=== PATIENT | female | born 1995 | race Caucasian/White ===

== ENCOUNTER 2017-04-04 15:23 | Emergency (ER) | payer OTHER ==
[~2017-04-04] VITALS: Ht 152.4 cm; Wt 49.9 kg
[~2017-04-04 15:23] MED LIST: CIPROFLOXACIN500 M2 ORAL; IBUPROFEN600 MG ORAL; KEFLEX500 MG ORAL; NKM; OMEPRAZOLE40 M1 ORAL; PHENAZOPYRIDIN200 MG ORAL
[2017-04-04 16:00] VITALS: BP 106/70
[2017-04-04 16:11] LABS: APPEARANCE,URINE CLEAR; KETONES,URINE NEGATIVE (NEGATIVE); LEUKOCYTE ESTERASE ,URINE 3+ (NEGATIVE); NITRITE,URINE POSITIVE (NEGATIVE); PH,URINE 6.5 (4.5-8.0); PROTEIN,URINE NEGATIVE (NEGATIVE); UROBILINOGEN,URINE 4 MG/DL (0.0-1.0)
[2017-04-04] MEDS ORDERED: Tylenol #3 tab (300mg/30mg) ORAL ONE (16:15)
[2017-04-04 16:20] LABS: ICTOTEST NEGATIVE
[2017-04-04 16:22] LABS: SQUAMOUS EPITHELIAL CELL,UR OCCASIONAL /LPF (NONE/OCC); WBC,URINE 15-20 /HPF (0 - 2)
[2017-04-04 16:23] LABS: BACTERIA,URINE FEW /HPF
[2017-04-04] MEDS ORDERED: ACETAMINOPHEN-1 EAC1 ORAL (17:19)
[2017-04-04] MEDS ORDERED: ZOFRAN ODT4 MG ORAL (17:19)
[2017-04-04] MEDS ORDERED: KEFLEX500 MG ORAL (17:19)
[2017-04-04] MEDS ORDERED: PHENAZOPYRIDIN100 MG ORAL (17:19)
[2017-04-04] MEDS ORDERED: Cephalexin 500mg cap ORAL ONE (17:45)
[2017-04-04 18:27] VITALS: BP 106/70
--- NOTE | 2017-04-05 22:18 | Emergency Room Report ---
History of Present Illness General Chief Complaint: Female Urogenital Problems Source: Patient Present Illness HPI 21-year-old female presents ED complaining of dysuria x2 days. Notes intense pain when urinating. 10 of 10. Burning. Nonradiating. Denies fevers or chills. Denies flank pain. Denies nausea or vomiting. Denies any vaginal bleeding or discharge. Patient admits to being sexually active. No other aggravating or relieving factors. Denies any other associated symptoms Allergies: Coded Allergies: BROMPHENIRAMINE (Unverified Allergy, Unknown, 07/27/14) DEXTROMETHORPHAN (Unverified Allergy, Unknown, 07/27/14) PHENYLEPHRINE (Unverified Allergy, Unknown, 07/27/14) PSEUDOEPHEDRINE (Unverified Allergy, Unknown, 12/30/15) Patient History Past Medical History: none Past Surgical History: none Pertinent Family History: none Social History: Denies: alcohol use, drug use, smoking Now: No Immunizations: UTD Reviewed Nursing Documentation: PMH: Agreed, PSxH: Agreed Nursing Documentation-PMH Past Medical History: No Stated History Review of Systems All Other Systems: negative except mentioned in HPI Physical Exam Vital Signs Date Time Temp Pulse Resp B/P Pulse Ox O2 Delivery O2 Flow Rate FiO2 04/04/17 15:30 97.9 100 20 106/70 100 Room Air Sp02 EP Interpretation: reviewed, normal General Appearance: no apparent distress, alert, GCS 15, non-toxic Head: normocephalic, atraumatic Eyes: bilateral eye PERRL, bilateral eye normal inspection ENT: hearing grossly normal, normal pharynx, no angioedema, normal voice Neck: full range of motion, supple/symm/no masses Respiratory: chest non-tender, lungs clear, normal breath sounds, speaking full sentences Cardiovascular #1: regular rate, rhythm, no edema Cardiovascular #2: 2+ carotid (R), 2+ carotid (L), 2+ radial (R), 2+ radial (L) , 2+ dorsalis pedis (R), 2+ dorsalis pedis (L) Gastrointestinal: normal bowel sounds, soft, non-distended, no guarding, no rebound, tenderness - suprapubic Rectal: deferred Genitourinary: normal inspection, no CVA tenderness Musculoskeletal: back normal, gait/station normal, normal range of motion, non- tender Neurologic: alert, oriented x3, responsive, motor strength/tone normal, sensory intact, speech normal Psychiatric: judgement/insight normal, memory normal, mood/affect normal, no suicidal/homicidal ideation Reflexes: 3+ bicep (R), 3+ bicep (L), 3+ tricep (R), 3+ tricep (L), 3+ knee (R) , 3+ knee (L) Skin: normal color, no rash, warm/dry, well hydrated Lymphatic: no adenopathy Medical Decision Making Diagnostic Impression: Primary Impression: UTI (lower urinary tract infection) Additional Impression: Dysuria ER Course Hospital Course 21-year-old female presents to ED complaining of dysuria with suprapubic pain. Differential diagnoses include: UTI, cystitis, pyelonephritis Clinical course Patient placed on stretcher. After initial history and physical I ordered UA, urine , tylenol #3. UA + bacteria. Diagnosis - UTI, dysuria Stable and discharged home with prescriptions for Rx Keflex, Pyridium, tylenol # 3, zofran. Instructed to followup with PMD. Return to ED if symptoms recur or worsen Labs Test 04/04/17 15:40 Urine Color [place] Urine Appearance Clear Urine pH 6.5 (4.5-8.0) Urine Specific [place] 1.005 (1.005-1.035) Urine Protein Negative (NEGATIVE) Urine Glucose (UA) Negative (NEGATIVE) Urine Ketones Negative (NEGATIVE) Urine Occult Blood 5+ (NEGATIVE) Urine Nitrite Positive (NEGATIVE) Urine Bilirubin 2+ (NEGATIVE) Urine Ictotest Negative Urine Urobilinogen 4 MG/DL (0.0-1.0) Urine Leukocyte Esterase 3+ (NEGATIVE) Urine RBC 2-4 /HPF (0 - 2) Urine WBC 15-20 /HPF (0 - 2) Urine Squamous Epithelial Cells Occasional /LPF Urine Bacteria Few /HPF (NONE) Urine HCG, Qualitative Negative Last Vital Signs Date Time Temp Pulse Resp B/P Pulse Ox O2 Delivery O2 Flow Rate FiO2 04/04/17 18:27 97.9 89 20 106/70 100 Room Air Status: improved Disposition: HOME, SELF-CARE Condition: Stable Scripts Ondansetron Odt* (ZOFRAN ODT*) 4 Mg Tab.rapdis 4 MG ORAL Q6H Y for Nausea & Vomiting, #30 TAB 0 Refills Prov: AXEL GOYAL M.D. 04/04/17 Phenazopyridine Hcl* (PYRIDIUM*) 100 Mg Tablet 100 MG ORAL THREE TIMES A DAY for 3 Days, TAB Prov: AXEL GOYAL M.D. 04/04/17 Acetaminophen With Codeine (T#3) (TYLENOL #3 TAB*) Y Tab 1 TAB ORAL Q8H Y for For Pain, #10 TAB Prov: AXEL GOYAL M.D. 04/04/17 Cephalexin* (KEFLEX*) 500 Mg Capsule 500 MG ORAL Q6H, #28 CAP 0 Refills Prov: AXEL GOYAL M.D. 04/04/17 Referrals: NAY HARTMAN,REFERRI (PCP) Patient Instructions: Urinary Tract Infection AXEL GOYAL M.D. April 05, 2017 22:18
== END 2017-04-04 17:25 | disposition home or self-care (01) ==
LOC: EMR 15:40
DX: N39.0 Urinary tract infection, site not specified (principal); Z88.8 Allergy status to other drugs, medicaments and biological substances
CPT/HCPCS: 81003; 81025; 87086; 99284